=== PATIENT | female | born 1945 | race Caucasian/White ===

== ENCOUNTER 2017-10-05 16:28 | Emergency (ER) | payer MEDICARE, OTHER | END 2017-10-05 19:30 | LOC: D.ER 16:28 | DX: S09.90XA Unspecified injury of head, initial encounter (principal); W01.0XXA Fall on same level from slipping, tripping and stumbling without subsequent striking against object, initial encounter; Y93.89 Activity, other specified; Y92.019 Unspecified place in single-family (private) house as the place of occurrence of the external cause; S16.1XXA Strain of muscle, fascia and tendon at neck level, initial encounter; S00.03XA Contusion of scalp, initial encounter; I10 Essential (primary) hypertension ==

== ENCOUNTER 2020-02-21 22:38 | Emergency (ER) | payer MEDICARE, OTHER ==
[~2020-02-21] VITALS: Ht 162.6 cm; Wt 90.9 kg
[2020-02-21 22:42] VITALS: Ht 162.6 cm; Wt 90.9 kg
[2020-02-21 23:21] LABS: BASOPHILS 0.8 % (0-2); HEMATOCRIT 38.8 % (36.0-48.0); HEMOGLOBIN 12.6 g/dL (12-16); IMMATURE GRANULOCYTES 0.2 % (0-5); LYMPHOCYTES 42.8 % (15-50); MCH 27.9 pg (26.0-34.0); MCHC 32.5 g/dL (31.0-37.0); MONOCYTES 9.8 % (2-11); NEUTROPHILS 42.4 % (40-80); PLATELET COUNT 161 10x3/uL (130-400); RBC 4.51 10x6/uL (4.00-5.40); WBC 5.2 10x3/uL (4.8-10.8)
[2020-02-21 23:26] LABS: CALC OSMOLALITY 282 mosm/kg (275-300); CARBON DIOXIDE 26.8 mmol/L (21.0-32.0); CHLORIDE - SERUM 105 mmol/L (98-107); CREATININE - SERUM 0.9 mg/dL (0.6-1.3); GLUCOSE 117 mg/dL (74-106); POTASSIUM - SERUM 3.7 mmol/L (3.5-5.1); SODIUM 141 mmol/L (136-145); UREA NITROGEN 15 mg/dL (7-18); eGFR NON AFRICAN AMERICAN 65 mL/min (90-120)
[2020-02-21 23:34] LABS: ALBUMIN 3.2 g/dL (3.4-5.0); ALKALINE PHOSPHATASE 190 U/L (30-120); ALT (SGPT) 16 U/L (10-68); BILIRUBIN - TOTAL 0.33 mg/dL (0.2-1.3); C-REACTIVE PROTEIN 0.9 mg/dL (0.0-0.9); PROTEIN - SERUM 7.2 g/dL (6.4-8.2)
[2020-02-21 23:37] LABS: TROPONIN-I < 0.017 ng/mL (0.000-0.060)
[2020-02-22] MEDS ORDERED: HYDROCODON-ACE1 EAC7 PO (01:26)
[2020-02-22 01:34] VITALS: BP 180/80
== END 2020-02-22 01:34 | disposition home or self-care (01) ==
LOC: D.ER 22:38
PROVIDERS: Family Medicine
DX: S46.912A Strain of unspecified muscle, fascia and tendon at shoulder and upper arm level, left arm, initial encounter (principal); W01.0XXA Fall on same level from slipping, tripping and stumbling without subsequent striking against object, initial encounter; Y93.9 Activity, unspecified; Y92.9 Unspecified place or not applicable; T14.8XXA Other injury of unspecified body region, initial encounter; T85.9XXA Unspecified complication of internal prosthetic device, implant and graft, initial encounter